=== PATIENT | male | born 1955 ===

== ENCOUNTER 2023-08-03 05:21 | Day surgery (SDC) | payer OTHER ==
[2023-07-28 08:53] LABS: HEMATOCRIT 45.7 % (39.0-48.0); HEMOGLOBIN 15.9 g/dL (13-16.00); MEAN CELL VOLUME 91.2 fL (80.0-100.00); MEAN CORPUSCULAR HEMOGLOBIN 31.8 pg (27.00-32.0); MEAN CORPUSCULAR HGB CONC 34.8 g/dl (32.0-36.0); PLATELET COUNT 243 K/uL (150-450); RED BLOOD COUNT 5.01 M/uL (4.00-6.00); RED CELL DISTRIBUTION WIDTH 13.2 % (11.5-14.5)
[2023-07-28 08:56] LABS: PH,URINE 5.5 (5.0-8.0); URINE APPEARANCE Clear; URINE BILIRRUBIN Negative (NEGATIVE); URINE BLOOD Negative; URINE COLOR Yellow; URINE GLUCOSE Negative (NEGATIVE); URINE LEUKOCYTE Negative; URINE NITRATE Negative; URINE PROTEIN Negative (NEGATIVE)
[2023-07-28 08:57] LABS: URINE BACTERIA 7.5 uL (0.0-1933); URINE RBC 2.7 uL (0.0-20.8)
[2023-07-28 09:28] LABS: INR 1.02; PARTIAL THROMBOPLASTIN TIME 37.3 SECONDS (22.0-34.0); PROTHROMBIN TIME 10.7 SECONDS (9.0-11.5)
[2023-07-28 09:34] LABS: ALBUMIN 4.3 gm/dL (3.4-5.0); BILIRUBIN TOTAL 0.85 mg/dL (0.3-1.2); CALCIUM 9.3 mg/dL (8.5-10.1); CREATININE SERUM 1.01 mg/dL (0.70-1.30); GFR 73.03; GLOBULINA 3.9 G/DL (2.4-3.5); POTASSIUM 4.29 mEq/L (3.5-5.1); TOTAL PROTEIN 8.2 gm/dL (6.4-8.2)
[2023-07-28 09:48] LABS: URINE EPITHELIAL CELLS 0.9 uL (0.0-38.8)
[~2023-08-03 05:21] MED LIST: LOTREL 5-10 MG1 CAP
[2023-08-03] MEDS ORDERED: CEFAZOLIN SODIUM 1,000 MG VIAL ONE (14:26)
== END 2023-08-03 22:00 | disposition home or self-care (01) ==
LOC: CIR.AMB 05:21
PROVIDERS: ATTEND Surgery
DX: K40.30 Unilateral inguinal hernia, with obstruction, without gangrene, not specified as recurrent (principal); Z88.6 Allergy status to analgesic agent; I10 Essential (primary) hypertension; H52.209 Unspecified astigmatism, unspecified eye